=== PATIENT | female | born 1950 | race Caucasian/White ===

== ENCOUNTER 2017-03-08 15:38 | Emergency (ER) | payer OTHER ==
[~2017-03-08] VITALS: Ht 162.6 cm; Wt 105.7 kg
[~2017-03-08 15:38] MED LIST: APAP500 PO; ASPIRIN EC325 M1 PO; ASPIRIN81 M2 PO; CALCIUM 600 +1 EAC9 PO; CARVEDILOL12.5 MG PO; CHLORPHENIRAMINE4 M4 PO; DULCOLAX STOOL100 MG PO; DUONEB 2.5-0.5 M3 ML INH; FERROUS SULFAT325 M1 PO; ISOSORBIDE DINI30 MG PO; KEPPRA 500 MG500 M1 PO; LASIX 40 MG TAB40 MG PO; LIPITOR80 MG PO; MUCINEX600 MG PO; NAPROSYN250 MG PO; NITROGLYCERIN0.4 MG; NORCO 5-325 TA1 EACH PO; PLAVIX 75 MG TA75 M1 PO; POTASSIUM20 PO; QUINU5 PD PO; SINGULAIR 10 MG10 M1 PO; XOPENEX0.31 MG/3 IH
[2017-03-08 16:13] LABS: ABSOLUTE NEUTROPHILS 6.8 thou/uL (1.4-8.2); BASOPHILS 0.8 % (0.0-2.0); EOSINOPHILS 2.1 % (0.0-3.0); HEMATOCRIT 36.6 % (37.0-47.0); HEMOGLOBIN 12.4 gm/dL (12.0-15.0); LYMPHOCYTES 29.2 % (24.0-44.0); MANUAL DIFF NO; MCH 31.4 pg (26.0-34.0); MCHC 33.9 g/dL (28.0-37.0); MCV 92.6 fL (80.0-100.0); MONOCYTES 9.6 % (1.0-8.0); PLATELET COUNT 232 thou/uL (150-400); POLYS 58.3 % (36.0-66.0); RBC 3.95 mil/uL (4.20-5.00); RDW 14.3 % (10.5-14.5); WBC 11.6 thou/uL (4.0-11.0)
[2017-03-08 16:20] LABS: CALCIUM 9.8 mg/dL (8.5-10.1); CREATININE 0.6 mg/dL (0.6-1.0); POTASSIUM 4.2 mmol/L (3.5-5.1)
[2017-03-08 16:47] LABS: APTT 27.1 Seconds (24.5-32.8); PROTIME 10.7 Seconds (9.3-11.4)
[2017-03-08] MEDS ORDERED: FLUTICASONE PRO16 GM NS (17:05)
[2017-03-08] MEDS ORDERED: QUINAPRIL HCL5 MG PO (17:06)
[2017-03-08] MEDS ORDERED: NYSTATIN 100,0015 G1 TP (17:53)
[2017-03-09 21:07] LABS: CHLAMYDIA TRACHOMATIS-PCR Negative (Negative); NEISSERIA GONORRHEA-PCR Negative (Negative)
== END 2017-03-08 18:30 | disposition home or self-care (01) ==
LOC: ER 15:38
PROVIDERS: Physician Assistant
DX: S30.23XA Contusion of vagina and vulva, initial encounter (principal); N93.8 Other specified abnormal uterine and vaginal bleeding; B37.2 Candidiasis of skin and nail; I11.0 Hypertensive heart disease with heart failure; I50.9 Heart failure, unspecified; Z95.5 Presence of coronary angioplasty implant and graft; Z95.1 Presence of aortocoronary bypass graft; J45.909 Unspecified asthma, uncomplicated; Z90.49 Acquired absence of other specified parts of digestive tract; E11.9 Type 2 diabetes mellitus without complications; E66.9 Obesity, unspecified; Z86.79 Personal history of other diseases of the circulatory system; Z88.5 Allergy status to narcotic agent; Z91.040 Latex allergy status; Z88.1 Allergy status to other antibiotic agents; Z88.2 Allergy status to sulfonamides; Z88.8 Allergy status to other drugs, medicaments and biological substances; W18.09XA Striking against other object with subsequent fall, initial encounter; Y93.89 Activity, other specified; Y92.002 Bathroom of unspecified non-institutional (private) residence as the place of occurrence of the external cause; Y99.8 Other external cause status